=== PATIENT | female | born 1995 | race Two or more races ===

== ENCOUNTER 2017-05-04 03:07 | Emergency (ER) | payer SELFPAY ==
[~2017-05-04] VITALS: Ht 167.6 cm; Wt 76.7 kg
--- NOTE | 2017-05-04 03:26 | Emergency Room Report ---
History of Present Illness General Chief Complaint: Lower Extremity Injury Source: Patient Present Illness [facility] This is a 22-year-old female with previous left patellar fracture requiring surgery. She presents with chief complaint of left knee pain. Onset while she was sleeping. [place] No fever or chills and no nausea no vomiting. Knee is swollen. Tender to palpation. Worse with walking. Denies any other complaint. Pain is 10 out of 10. Allergies: Coded Allergies: No Known Allergies (Unverified , 05/04/17) Patient History Past Medical History: see triage record, old chart reviewed Past Surgical History: other Pertinent Family History: none Social History: Denies: smoking Now: No Immunizations: other Reviewed Nursing Documentation: PMH: Agreed, PSxH: Agreed Nursing Documentation-PMH Past Medical History: No Stated History Review of Systems Eye: Denies: eye pain, blurred vision ENT: Denies: ear pain, nose congestion, throat swelling Respiratory: Denies: cough, shortness of breath Cardiovascular: Denies: chest pain, palpitations Gastrointestinal: Denies: abdominal pain, diarrhea, nausea, vomiting Musculoskeletal: Reports: joint pain, Denies: back pain Skin: Denies: rash Neurological: Denies: headache, numbness Endocrine: Denies: increased thirst, increased urine Hematologic/Lymphatic: Denies: easy bruising All Other Systems: negative except mentioned in HPI Physical Exam Vital Signs Date Time Temp Pulse Resp B/P (MAP) Pulse Ox O2 Delivery O2 Flow Rate FiO2 05/04/17 03:09 98.1 88 18 109/88 100 Room Air vitals normal Sp02 EP Interpretation: reviewed, normal General Appearance: well appearing, no apparent distress, alert Head: normocephalic, atraumatic Eyes: bilateral eye PERRL, bilateral eye EOMI ENT: hearing grossly normal, normal pharynx Neck: full range of motion, supple, no meningismus Respiratory: chest non-tender, lungs clear, normal breath sounds Cardiovascular #1: regular rate, rhythm, no murmur Gastrointestinal: normal bowel sounds, non tender, no mass, no organomegaly, no bruit, non-distended Musculoskeletal: back normal, swelling - Tenderness and effusion to the medial aspect of the left knee. Decreased range of motion secondary to pain. No warmth. No redness. Sensation normal. Psychiatric: mood/affect normal Skin: warm/dry Procedures Splinting Splinting : Consent: Verbal Pre-Made Type: knee immobilizer Pre-Proc Neuro Vasc Exam: normal Post-Proc Neuro Vasc Exam: normal Patient Tolerated: Well Complications: None Medical Decision Making Diagnostic Impression: Primary Impression: Left knee sprain Qualified Codes: S83.412A - Sprain of medial collateral ligament of left knee , initial encounter ER Course Patient presents with left knee pain. Most likely a sprain. If not better will need MRI. No evidence of infection. No evidence of septic joint. We'll discharge him to Other X-Ray Diagnostic Results Other X-Ray Diagnostic Results : X-Ray ordered: Left knee x-rays # of Views/Limited Vs Complete: 4 View Indication: Pain EP Interpretation: Yes Interpretation: no dislocation, no soft tissue swelling, no fractures Impression: No acute disease Interpreting ER Provider: Electronically signed by Last Garcia MD Last Vital Signs Date Time Temp Pulse Resp B/P (MAP) Pulse Ox O2 Delivery O2 Flow Rate FiO2 05/04/17 03:09 98.1 88 18 109/88 100 Room Air Status: improved Disposition: HOME, SELF-CARE Condition: Stable Scripts Naproxen* (NAPROSYN*) 500 Mg Tablet 500 MG ORAL TWICE A DAY, #30 TAB Prov: LAST GARCIA M.D. 05/04/17 Patient Instructions: Knee Sprain Additional Instructions: Followup with your DrAddie in 7 days. Return if symptom worsen. LAST GARCIA M.D. May 04, 2017 03:26
[2017-05-04] MEDS ORDERED: NAPROSYN500 M1 ORAL (03:51)
[2017-05-04 04:00] VITALS: BP 1/1
--- NOTE | 2017-05-05 09:36 | Diagnostic Imaging Report ---
Indication: PAIN, knee pain upon awakening Technique: 4 views of the left knee Comparison: None Findings: Equivocal small suprapatellar effusion. No acute fractures. No dislocations. The joint spaces are preserved. Impression: Possible small effusion No acute bony trauma This agrees with the preliminary interpretation provided overnight by [facility].
== END 2017-05-04 04:00 | disposition home or self-care (01) ==
LOC: EMR 03:30
DX: S83.92XA Sprain of unspecified site of left knee, initial encounter (principal); Y93.01 Activity, walking, marching and hiking; Y92.832 Beach as the place of occurrence of the external cause
CPT/HCPCS: 29505; 99283